=== PATIENT | female | born 1975 | race Hispanic/Latino ===

== ENCOUNTER 2023-07-20 09:06 | Emergency (ER) | payer BC, SELFPAY ==
--- NOTE | 2023-07-20 09:19 | ED_ITS ---
HPI - General Adult General Chief complaint: Back Pain/Injury Stated complaint: pelvic pain moving to groin and thigh Time Seen by Provider: 07/20/23 09:14 History of Present Illness HPI narrative: 48-year-old female nonsmoker without chronic medical history presents with a chief complaint of some pain in her right lower back that has been gradually worsening over the past few weeks. It started in her low back and now wraps around into her lateral hip in her right anterior thigh. She states it is worse when she moves or bends forward and improves with rest. She denies any numbness, tingling or weakness. She denies any trauma known injury. She denies history of IV drugs or use of blood thinners. She denies loss of control of bowel or bladder. Additionally she is been having persistent pain in her right lower quadrant. She states the pain is sharp and stabbing and also worse if she moves and improves with rest. She denies vaginal bleeding and did have a brief bit of discharge a few weeks ago but that has resolved. She denies dysuria, frequency or urgency. She has no nausea, vomiting or abdominal pain. She denies any fever or chills and has had no change Related Data Home Medications Medication Instructions Recorded Confirmed acyclovir 400 mg tablet 400 mg PO 3XD 07/20/23 07/20/23 pregabalin 25 mg capsule 25 mg PO ONCE PM 07/20/23 07/20/23 spironolactone 100 mg tablet 100 mg PO DAILY 07/20/23 07/20/23 Previous Rx's Medication Instructions Recorded cyclobenzaprine 10 mg tablet 10 mg PO TID PRN muscle spasm #14 07/20/23 tabs ketorolac 10 mg tablet 10 mg PO Q6H PRN pain #14 tabs 07/20/23 Allergies Allergy/AdvReac Type Severity Reaction Status Date / Time Penicillins Allergy Rash Verified 07/20/23 09:36 Review of Systems Review of Systems Narrative: GENERAL: Denies chills, fatigue, malaise, fever, sweats. HEENT: Denies sinus pain, ear pain, sore throat, difficulty swallowing, dizziness. RESPIRATORY: Denies dyspnea, cough, wheezing, hemoptysis, sputum. CARDIOVASCULAR: Denies chest pain, palpitations, orthopnea, edema, GASTROINTESTINAL: See HPI : See HPI MUSCULOSKELETAL: See HPI SKIN: Denies rash, skin lesions, or other NEUROLOGIC: Denies weakness, headache, numbness, change in speech, confusion, seizures, incoordination. PSYCHIATRIC: No concerning psychosocial issues. 12 point review of systems is negative except for those stated above Patient History Social History Smoking Status: Unknown if ever smoked Exam Narrative Exam Narrative: GENERAL: [48] year old patient appears stated age. Well-developed patient, in mild distress. HEAD: Atraumatic. Normocephalic. EYES: Pupils equal round and reactive. Extraocular motions intact. No scleral icterus. No injection or drainage. ENT: Nose without bleeding, purulent drainage. Throat without erythema, tonsillar hypertrophy or exudate. Airway patent. NECK: Trachea midline. Non tender CARDIOVASCULAR: Regular rate and rhythm without murmurs, gallops, or rubs. RESPIRATORY: Clear to auscultation. Breath sounds equal bilaterally. No wheezes, rales, or rhonchi. GASTROINTESTINAL: Abdomen soft, minimal tenderness in right lower quadrant without rebound, Rovsing's, negative heel tap or obturator., nondistended. EXTREMITIES: No edema or joint tenderness. BACK: marble machine tender but free of any obvious external abnormalities. Patient exam notes decreased range of motion and muscle spasm, but no CVA tenderness, or vertebral point tenderness. There are no symptoms of cauda equina such as saddle anesthesia, and decreased reflexes, decreased sensation or strength. NEURO: AOx3. SKIN: No rash or erythema of visible areas Initial Vital Signs Initial Vital Signs: Vital Signs Temperature 98 F 07/20/23 09:32 Pulse Rate 84 07/20/23 09:32 Respiratory Rate 17 07/20/23 09:32 Blood Pressure 118/71 07/20/23 09:32 Pulse Oximetry 100 07/20/23 09:32 Oxygen Delivery Method Room Air 07/20/23 09:32 Medical Decision Making Lab Data Labs: Lab Results 07/20/23 Range/Units 09:30 Urine RBC 1-5/hpf (0-5/HPF) Urine WBC 1-5/hpf (0-5/HPF) Ur Squamous Epith Cells 1-5 /hpf (0-5/HPF) Uric Acid Crystals Few H (None) Urine Bacteria Few (2-10) H (None) Ur Culture Indicated? Cult not indicated Point of Care Testing Test Results Negative Urine Dip Bedside Urine Glucose Negative Bedside Urine Bilirubin - Negative Bedside Urine Ketone - Negative Urine Specific [place] 1.03 Bedside Urine Occult Blood +/- Bedside Urine pH 6.0 Bedside Urine Protein - Negative Bedside Urine Urobilinogen - Negative Bedside Urine Nitrite - Negative Bedside Urine Leukocytes - Negative Esterase Point of care testing: Point of Care Testing Test Results Negative Urine Dip Bedside Urine Glucose Negative Bedside Urine Bilirubin - Negative Bedside Urine Ketone - Negative Urine Specific [place] 1.03 Bedside Urine Occult Blood +/- Bedside Urine pH 6.0 Bedside Urine Protein - Negative Bedside Urine Urobilinogen - Negative Bedside Urine Nitrite - Negative Bedside Urine Leukocytes - Negative Esterase MDM Narrative Medical decision making narrative: [48] year old patient presents with right low back pain with radiation to right anterior thigh and right lower quadrant pain Multiple etiologies for patient's symptoms considered including, but not limited to: [Kidney stone versus pyelonephritis versus (much less likely) lumbar radiculopathy versus epidural hematoma vs. cauda equina vs. appy vs. ovarian cys t/torsion/TOA vs. other] Prior Charts reviewed in our EMR Primary Historian: patient Labs reviewed and interpreted by myself: No signs of blood or infection in the urine Imaging reviewed: Renal ultrasound demonstrates simple 1.8 cm ovarian cyst otherwise normal in appearance with low Patient's history and physical exam are reassuring, she is in no acute distress, no signs of sepsis, ambulatory. Multiple diagnoses considered as noted above. Urine reassuring no evidence of blood or infectious process. Ultrasound demonstrates ovarian cyst with normal flow. Appendicitis considered extremely unlikely given duration of symptoms, and lack of associated findings such as fever or chills, nausea, anorexia, reassuring ultrasound multiple considerations for back pain noted above. There are no red flag findings of a neurosurgical emergency. The pain is reproducible, radiates into her right hip and thigh. Seems likely that her symptoms are a combination of ovarian cyst pain and low back pain. Findings and discharge diagnosis discussed with patient/family followed by verbalization of understanding Return precautions discussed with patient/family whom verbalize understanding of diagnosis and plan Discharge Plan Departure Patient Disposition: Home Clinical Impression: Strain of lumbar region, Ovarian cyst Instructions: DI for Ovarian Cyst, DI for Back Spasm Activity Restrictions/Additional Instructions: *You have been diagnosed with [low back pain and right-sided ovarian cyst] *What to do: *Please continue to take your regular medications as directed. [x ] New medication prescriptions sent to your pharmacy: [ [facility]] [ ] New medication written as a paper prescription [ ] No new medications given *Please follow up with your primary care provider in 2-3 days, call for an appointment. Let them know you were seen in the Emergency Department and that we ask that you be seen in follow up. We will electronically transmit a record of today's note if your PCP is in our system *If you do not have a primary care provider please contact the [facility] Resource line at [phone]. They will ask some questions about your medical history and help get you set up with a doctor in the community. *Return to Emergency Department if you should have any new, worsening or concerning symptoms, such as [fever greater than 101 F, shaking chills, worsening pain, persistent vomiting or other bothersome symptoms] Prescriptions: New cyclobenzaprine 10 mg tablet 10 mg PO TID PRN (Reason: muscle spasm) Qty: 14 0RF ketorolac 10 mg tablet 10 mg PO Q6H PRN (Reason: pain) Qty: 14 0RF No Action spironolactone 100 mg tablet 100 mg PO DAILY acyclovir 400 mg tablet 400 mg PO 3XD pregabalin 25 mg capsule 25 mg PO ONCE PM Referrals: Miscellaneous,Doctor, MD [Primary Care Provider] - Stand Alone Forms: Patient Portal/API
[2023-07-20 09:32] VITALS: BP 118/71; PULSE 84; RESP 17; TEMP 36.6; O2SAT 100; BMI 27.3
[2023-07-20 10:13] LABS: RBC Urine 1-5/HPF (0-5/HPF); WBC Urine 1-5/HPF (0-5/HPF)
[2023-07-20 10:14] LABS: Bacteria Urine Few (2-10); Culture Indicated Urine Cult Not Indicated; Squamous Epithelial Cell Urine 1-5 /HPF (0-5/HPF); Uric Acid Crystals Urine Few
--- NOTE | 2023-07-20 10:52 | DI.RAD.S_ITS ---
PROCEDURE: XR LUMBAR SPINE 2-3V INDICATIONS: back pain, into hip, groin, thigh TECHNIQUE: 3 views of the lumbar spine were acquired. COMPARISON: None. FINDINGS: Bones: 5 [id number] vertebrae are present. Mild dextrocurvature of the lumbar spine, may be positional. Degenerative changes of the lower lumbar spine with facet arthropathy. No vertebral body compression fractures. No suspicious bony lesions. Soft tissues: Overlying bowel gas pattern is normal. No suspicious soft tissue calcifications. Partially visualized surgical clips within the pelvis. IMPRESSION: Mild degenerative changes of the lower lumbar spine. Dictated by: Gallo Palomo M.D. on 07/20/2023 at 11:50 Approved by: Gallo Palomo M.D. on 07/20/2023 at 11:51
--- NOTE | 2023-07-20 10:52 | DI.US.S_ITS ---
PROCEDURE: US PELVIC COMPLETE INDICATIONS: RIGHT LOWER QUADRANT PAIN TECHNIQUE: Real-time scanning was performed of the pelvic organs, with image documentation. Additional endovaginal scanning was necessary due to incomplete visualization of the adnexal and endometrial structures by transabdominal scanning. COMPARISON: None. FINDINGS: Uterus: Uterus is anteverted and normal in size at 6.9 x 3.2 x 4.7 cm. The myometrium is homogeneous. The endometrium measures 2.5 mm combined thickness. No uterine fibroids. Heterogeneous appearance of the cervix. Ovaries: The right ovary measures 2.9 x 1.9 x 2.3 cm, with a calculated ovarian volume of 6.4 cc. Simple appearing right ovarian cyst measuring 1.7 x 1.6 x 1.8 cm The left ovary is not visualized. The ovaries have a normal sonographic appearance. Less than 12 follicles can be seen in the right ovary. No adnexal masses are seen. Other: No pathologic free abdominal or pelvic fluid. IMPRESSION: Simple appearing right ovarian cyst measuring 1.8 cm. The right ovary is otherwise normal in appearance with flow. The left ovary is not seen. We strive to produce accurate, complete, and clear reports of imaging services. To assist us in improving patient care, this report was composed using standard report templates and voice recognition software. Therefore, it may contain abnormal punctuation, insertions and/or omissions. Occasional wrong-word or sound-alike substitutions may occur. Though we review the report and make efforts to correct it, we do recommend that the report be read carefully in proper context to recognize any text inaccuracies. Dictated by: Gallo Palomo M.D. on 07/20/2023 at 11:51 Approved by: Gallo Palomo M.D. on 07/20/2023 at 11:53
--- NOTE | 2023-07-20 11:28 | DI.RAD.S_ITS ---
PROCEDURE: XR FOOT LT MIN 3V INDICATIONS: left foot pain TECHNIQUE: 3 views of the foot were acquired. COMPARISON: None. FINDINGS: Bones: No fractures or dislocations. Mild hallux valgus angulation of the 1st MTP with medial bunion formation. No suspicious bony lesions. Posterior calcaneal enthesophyte. Soft tissues: No tibiotalar joint effusion. Achilles tendon appears normal. IMPRESSION: No acute osseous abnormality. If pain persists with conservative management, consider repeat x-ray in 10-14 days or cross-sectional imaging. Dictated by: Gallo Palomo M.D. on 07/20/2023 at 12:00 Approved by: Gallo Palomo M.D. on 07/20/2023 at 12:00
[2023-07-20 13:44] VITALS: BP 114/71; PULSE 75; RESP 12; O2SAT 100
== END 2023-07-20 13:45 | disposition home or self-care (01) ==
PROVIDERS: Emergency Provider Emergency Medicine
DX: S39.012A Strain of muscle, fascia and tendon of lower back, initial encounter (principal); N83.201 Unspecified ovarian cyst, right side; R10.31 Right lower quadrant pain; M79.672 Pain in left foot
CPT/HCPCS: 72100; 73630; 76830; 76856; 81003; 81015; 81025; 93976; 99282; 99284

== ENCOUNTER 2023-10-17 10:03 | Emergency (ER) | payer BC, SELFPAY ==
[2023-10-17] VITALS (12 sets, daily range): BP systolic 93–138; BP diastolic 53–71; PULSE 76–102; RESP 18–30; TEMP 36.8; O2SAT 92–100; BMI 26.1
[2023-10-17 10:31] LABS: Add Manual Diff / Slide Review NO; Basophils Absolute Auto 0 /uL (0-100); Basophils Percent Auto 0.8 % (0-2); Eosinophils Absolute Auto 100 /uL (0-450); Eosinophils Percent Auto 1.5 % (2-4); Hemoglobin 12.4 g/dL (12.0-16.0); Lymphocytes Absolute Auto 1700 /uL (1100-4500); Lymphocytes Percent Auto 29.6 % (25-40); Mean Corpuscular HGB Conc 33.6 % (30-36); Mean Corpuscular Hemoglobin 29.2 PG (26-34); Mean Corpuscular Volume 86.7 fL (80-100); Monocytes Absolute Auto 500 /uL (0-900); Monocytes Percent Auto 8.5 % (3-14); Neutrophils Absolute Auto 3400 /uL (1500-7000); Neutrophils Percent Auto 59.6 % (50-75); Platelet Count 183 X10^3/uL (150-400); Red Blood Cell Count 4.27 X10^6/uL (4.0-5.2); Red Cell Distribution Width 13.1 % (11.6-14.8); White Blood Cell Count 5.7 X10^3/uL (4.5-11.0)
[2023-10-17 10:43] LABS: Alanine Aminotransferase 23 IU/L (<35); Albumin 5.2 g/dL (3.5-5.0); Albumin Globulin Ratio 1.3 (1.0-2.8); Alkaline Phosphatase 42 U/L (38-126); Aspartate Aminotransferase 59 IU/L (14-36); BUN Creatinine Ratio 25.5 (6-22); Bilirubin Total 1.5 mg/dL (0.2-1.3); Blood Urea Nitrogen 12 mg/dL (7-17); Calcium 9.9 mg/dL (8.4-10.2); Carbon Dioxide 27 mmol/L (22-32); Chloride 103 mmol/L (98-107); Estimated Glomerular Filt Rate > 60 mL/min (>60); Glucose 71 mg/dL (70-100); HEMOLYSIS 320 (0-50); Lipase 95 U/L (23-300); Sodium 140 mmol/L (137-145); Total Protein 9.2 g/dL (6.3-8.2)
[2023-10-17 10:44] LABS: Potassium 5.7 mmol/L (3.4-5.1)
--- NOTE | 2023-10-17 11:18 | ED_ITS ---
HPI - Abdominal Pain General Chief Complaint: Abdominal Pain Stated Complaint: stabbing pain in abd and pelvis blood in stool Time Seen by Provider: 10/17/23 11:11 Source: patient Mode of arrival: Ambulatory Limitations: no limitations History of Present Illness HPI narrative: 48-year-old female with known history of neuropathy on folate, spironolactone and Lyrica PRN. Patient presents with complaint of abdominal pain more right upper quadrant but a little bit radiating down to the right lower. She has had symptoms intermittently since August, states it started more in the right flank for up to around. She states she had a workup at [facility] was found to have a UTI, did have a CT scan to evaluate for appendicitis. Patient states she was discharged home on 5 days of antibiotics with Pyridium improved for about a week and then pain has started to return. She states throughout this episode pain has gone from a stabbing sensation to dull. Seems to be worsened by food, alcohol and medicine. If she avoids these seems to be helpful. She did note that her stools have been formed but she had white mucousy changes and was having blood regularly. She states the mucus is still present but the blood seems to have resolved. She states it was bright red and then a darker red after that. She denies any dysuria, urgency or frequency. Denies any new vaginal bleeding or discharge. Denies any fevers or chills. She would nausea and vomiting the 1st week in August. Has not had any since then. Patient states she is unsure why she has neuropathy that is why she takes her medications. Denies any prior surgeries. Allergic to penicillin. Denies tobacco, occasional alcohol, no recreational drugs. Related Data Home Medications Medication Instructions Recorded Confirmed acyclovir 400 mg tablet 400 mg PO 3XD 07/20/23 07/20/23 pregabalin 25 mg capsule 25 mg PO ONCE PM 07/20/23 07/20/23 spironolactone 100 mg tablet 100 mg PO DAILY 07/20/23 07/20/23 Previous Rx's Medication Instructions Recorded cyclobenzaprine 10 mg tablet 10 mg PO TID PRN muscle spasm #14 07/20/23 tabs ketorolac 10 mg tablet 10 mg PO Q6H PRN pain #14 tabs 07/20/23 prednisone 10 mg tablets in a dose See Rx Instructions PO .COMPLEX 10/17/23 pack #21 ea Allergies Allergy/AdvReac Type Severity Reaction Status Date / Time Penicillins Allergy Rash Verified 10/17/23 10:34 Review of Systems Review of Systems ROS Unobtainable: All systems reviewed & are unremarkable except as noted in HPI and below Patient History Social History Smoking Status: Never smoker Smoking Status: Never smoker alcohol intake frequency: a few times a month Substance Use Type: does not use Exam Narrative Exam Narrative: GENERAL: Alert and oriented x three, female in mild distress HEENT: Head normocephalic, atraumatic, EOMI, pupils reactive, face symmetric, moist mucous membranes NECK: Supple, full range of motion CARDIOVASCULAR: Regular rate and rhythm without murmurs, rubs or gallops. RESPIRATORY: Breath sounds equal bilaterally, no wheezes rales or rhonchi. ABDOMEN: Soft, positive for right-sided tenderness but greatest in the right upper quadrant compared to lower. No left-sided tenderness. Normoactive bowel sounds all 4 quadrants. No guarding or rebound, rigidity, no mass : No CVA tenderness bilaterally. EXTREMITIES: Normal range of motion, no clubbing or edema. Neurovascularly intact NEUROLOGICAL: Cranial nerves II through XII grossly intact. Moving all extremities SKIN: Warm, dry, no petechiae, no rashes or lesions. Initial Vital Signs Initial Vital Signs: Vital Signs Pulse Rate 100 H 10/17/23 10:16 Pulse Oximetry 100 10/17/23 10:16 Course Orders Ordered: ED Orders 10/17/23 10:15 Complete Blood Count AUTO DIFF Stat Comprehensive Metabolic Panel Stat Lipase Stat 10/17/23 10:26 EKG-12 Lead Stat 10/17/23 11:50 US abdomen limited Stat 10/17/23 12:35 CT abdomen pelvis w con Stat Discontinued Medications Sodium Chloride (Normal Saline 0.9%) 1,000 mls @ 1,000 mls/hr IV BOLUS ONE Stop: 10/17/23 12:18 Last Infusion: 10/17/23 13:56 Dose: Infused Documented By: Admin: 10/17/23 11:49 Dose: 1,000 mls/hr Documented By: KIRAN Ondansetron HCl (Ondansetron 4 Mg Odt) 4 mg PO NOW PRN PRN Reason: Nausea And Vomiting Ondansetron HCl (Ondansetron 4 Mg/2 Ml Inj) 4 mg IV NOW PRN PRN Reason: Nausea And Vomiting Vital Signs Vital signs: Vital Signs - 8 hr 10/17/23 10:16 10/17/23 10:22 10/17/23 10:30 Temperature 98.2 F Pulse Rate 100 H 96 H 97 H Respiratory Rate 18 25 H Blood Pressure 134/71 Pulse Oximetry 100 98 99 Oxygen Delivery Method Room Air 10/17/23 10:30 10/17/23 11:03 10/17/23 11:05 Temperature Pulse Rate 102 H Respiratory Rate 25 H Blood Pressure 120/64 138/60 Pulse Oximetry 98 Oxygen Delivery Method 10/17/23 11:05 10/17/23 11:30 10/17/23 11:31 Temperature Pulse Rate 93 H 87 Respiratory Rate 22 26 H Blood Pressure 93/65 Pulse Oximetry 92 99 Oxygen Delivery Method 10/17/23 11:31 10/17/23 12:00 10/17/23 12:00 Temperature Pulse Rate 89 85 Respiratory Rate 30 H 21 Blood Pressure 100/56 L Pulse Oximetry 100 100 Oxygen Delivery Method 10/17/23 12:30 10/17/23 12:30 10/17/23 13:00 Temperature Pulse Rate 76 84 Respiratory Rate 29 H 21 Blood Pressure 101/53 L Pulse Oximetry 100 100 Oxygen Delivery Method 10/17/23 13:30 10/17/23 13:31 10/17/23 13:31 Temperature Pulse Rate 92 H 78 Respiratory Rate 25 H 24 Blood Pressure 107/54 L Pulse Oximetry 98 99 Oxygen Delivery Method Room Air MDM - Abdominal Pain Lab Data 10/17/23 10:15 10/17/23 10:15 Labs: Lab Results 10/17/23 Range/Units 10:15 WBC 5.7 (4.5-11.0) X10^3/uL RBC 4.27 (4.0-5.2) X10^6/uL Hgb 12.4 (12.0-16.0) g/dL Hct 37.0 (36-46) % MCV 86.7 (80-100) fL MCH 29.2 (26-34) PG MCHC 33.6 (30-36) % RDW 13.1 (11.6-14.8) % Plt Count 183 (150-400) X10^3/uL Neut % (Auto) 59.6 (50-75) % Lymph % (Auto) 29.6 (25-40) % [place] % (Auto) 8.5 (3-14) % Eos % (Auto) 1.5 L (2-4) % Baso % (Auto) 0.8 (0-2) % Neut # (Auto) 3400 (5723-0261) /uL Lymph # (Auto) 1700 (5908-6065) /uL [place] # (Auto) 500 (0-900) /uL Eos # (Auto) 100 (0-450) /uL Baso # (Auto) 0 (0-100) /uL Sodium 140 (137-145) mmol/L Potassium 5.7 H (3.4-5.1) mmol/L Chloride 103 (98-107) mmol/L Carbon Dioxide 27 (22-32) mmol/L BUN 12 (7-17) mg/dL Creatinine 0.47 L (0.52-1.04) mg/dL Estimated GFR > 60 (>60) mL/min BUN/Creatinine Ratio 25.5 H (6-22) Glucose 71 (70-100) mg/dL Calcium 9.9 (8.4-10.2) mg/dL Total Bilirubin 1.5 H (0.2-1.3) mg/dL AST 59 H (14-36) IU/L ALT 23 (<35) IU/L Alkaline Phosphatase 42 (38-126) U/L Total Protein 9.2 H (6.3-8.2) g/dL Albumin 5.2 H (3.5-5.0) g/dL Globulin 4.0 (1.7-4.1) g/dL Albumin/Globulin Ratio 1.3 (1.0-2.8) Lipase 95 (23-300) U/L Point of care testing: Point of Care Testing Test Results Negative Urine Dip Bedside Urine Glucose Negative Bedside Urine Bilirubin - Negative Bedside Urine Ketone - Negative Urine Specific [place] 1.025 Bedside Urine Occult Blood - Negative Bedside Urine pH 6.0 Bedside Urine Protein - Negative Bedside Urine Urobilinogen - Negative Bedside Urine Nitrite - Negative Bedside Urine Leukocytes - Negative Esterase ECG Data Attestation: I personally reviewed and interpreted this ECG as follows: Interpretation: Sinus rhythm rate 80 WA 152 QRS 80 QTC of 410. No acute ST changes. MDM Narrative Medical decision making narrative: 48-year-old female with a month of abdominal pain initially right upper quadrant/flank. Was reportedly found to have a UTI treated with antibiotics had some improvement but symptoms have returned worsened. Patient sounds like she did have a CT August or early September which was negative for appendicitis. Patient is quite tender in her right upper quadrant. Labs including CBC do not show white count normal hemoglobin of 12 with platelets of 183. Potassium is elevated 5.7 was not obviously hemolyzed per report, creatinine is appropriate with normal BUN and otherwise normal electrolytes. D bili 1.5 AST 59, ALT 23 with a lipase of 95. Poc urine is negative. urine is negative. Patient has a EKG which was negative for acute change. Patient defers anything for pain she was given a L of fluids, plan for abdominal ultrasound if no obvious changes found we will follow with CT abdomen and pelvis. CT abdomen/pelvis patient may have mild bladder wall thickening hyperemia, no other acute intra-abdominal changes thickening appendix was not obviously identified but did not show secondary changes Discharge Plan Departure Patient Disposition: Home Clinical Impression: Colitis, Elevated bilirubin Instructions: DI for Colitis Activity Restrictions/Additional Instructions: Please follow-up with general surgery or Gastroenterology, the best way to fully evaluate is with a colonscopy. Contact information is included below for local follow-up. Please call to set up an appointment. You may take steroids once daily until gone may help your symptoms if there is an inflammatory process. Prescription sent to [facility] in [place]. Please return for fevers, worsening abdominal back or flank pain, persistent vomiting, lightheadedness or passing out, persistently black or bloody stools or other new or concerning changes. Prescriptions: New prednisone 10 mg tablets,dose pack See Rx Instructions .ROUTE .COMPLEX Qty: 21 0RF Rx Instructions: Take 6 tablets p.o. x1 day, then 5 tablets p.o. x1 day, then 4 tablets p.o. x1 day, then 3 tablets p.o. x1 day, then 2 tablets p.o. x1 day, then 1 tablet p.o. x1 day No Action spironolactone 100 mg tablet 100 mg PO DAILY acyclovir 400 mg tablet 400 mg PO 3XD pregabalin 25 mg capsule 25 mg PO ONCE PM cyclobenzaprine 10 mg tablet 10 mg PO TID PRN (Reason: muscle spasm) Qty: 14 0RF ketorolac 10 mg tablet 10 mg PO Q6H PRN (Reason: pain) Qty: 14 0RF Referrals: José Luis Mcpherson MD [Physician] - Miscellaneous,MD Charlene [Primary Care Provider] - Stand Alone Forms: Patient Portal/API
[2023-10-17] MEDS: SODIUM CHLORIDE 0.9% 1,000 ML 1000 ML IV (11:49)
--- NOTE | 2023-10-17 11:50 | DI.US.S_ITS ---
PROCEDURE: US ABDOMEN LIMITED INDICATIONS: RIGHT UPPER AND LOWER QUADRANT PAIN. ?CHOLECYSTITIS TECHNIQUE: Real-time scanning was performed of the abdominal and retroperitoneal organs, with image documentation. COMPARISON: None. FINDINGS: Liver: Liver is normal in size and homogeneous in echotexture. Gallbladder: Partially contracted. Gallbladder wall is mildly thickened at 3 mm. No biliary ductal dilatation. Negative sonographic Collins sign. Biliary ducts: Intrahepatic bile ducts are non-dilated. Extrahepatic bile duct caliber measures 3 mm. Normal is 6-7 mm or less in diameter, or 10 mm or less post-cholecystectomy. Pancreas: Not well seen. IMPRESSION: Contracted gallbladder with mildly thickened wall, representing either suboptimal distension versus mild/early acute cholecystitis. Clinical correlation is recommended. Dictated by: Julisa Bernard M.D. on 10/17/2023 at 12:43 Approved by: Julisa Bernard M.D. on 10/17/2023 at 12:44
--- NOTE | 2023-10-17 12:35 | DI.CT.S_ITS ---
PROCEDURE: CT ABDOMEN PELVIS W CON INDICATIONS: RUQ/RLQ pain, white mucous, blood in stool x 1 month TECHNIQUE: After the administration of intravenous contrast, axial sections acquired from the lung bases to the pubic symphysis. Coronal and sagittal reformats were performed. For radiation dose reduction, the following was used: automated exposure control, adjustment of mA and/or kV according to patient size. COMPARISON: None. FINDINGS: Image quality: Diagnostic. Lower Chest: No significant findings. ABDOMEN: Liver: No solid mass. Gallbladder: Gallbladder is contracted. Biliary ducts: No biliary dilation. Pancreas: No ductal dilation. Spleen: Size is within normal limits. Adrenal Glands: No adrenal nodules. Kidneys and Ureters: No hydronephrosis. No solid mass. No complex renal cystic lesion which requires follow up. Stomach and Bowel: Stomach and small bowel are within normal limits. There is possible thickening of the descending colon. Appendix is not seen. No evidence of appendicitis. Peritoneum: No abnormal intraperitoneal fluid. No free air. Ventral Wall: No hernia. Abdominal Nodes: No retroperitoneal or mesenteric adenopathy by size criteria. Vessels: Aorta and inferior vena cava are normal in size. PELVIS: Pelvic Organs: Bilateral adnexal surgical clips are present. Bladder: Unremarkable. Pelvic Nodes: No enlarged lymph nodes. Miscellaneous: No inguinal hernias are seen. Bones: No aggressive osseous abnormality. IMPRESSION: 1. Possible descending colonic thickening, which could indicate ischemia, infection, or inflammation. Follow-up colonoscopy is recommended to exclude underlying neoplasm. 2. Appendix not seen. No evidence of appendicitis. Dictated by: Julisa Bernard M.D. on 10/17/2023 at 12:53 Approved by: Julisa Bernard M.D. on 10/17/2023 at 12:59
== END 2023-10-17 14:01 | disposition home or self-care (01) ==
PROVIDERS: Emergency Provider Emergency Medicine
DX: K52.9 Noninfective gastroenteritis and colitis, unspecified (principal); R17 Unspecified jaundice; R10.11 Right upper quadrant pain
CPT/HCPCS: 36415; 74177; 76705; 80053; 81003; 81025; 83690; 85025; 93005; 93010; 96360; 96361; 99284; Q9967